=== PATIENT | female | born 1990 | race Caucasian/White ===

== ENCOUNTER 2018-11-13 16:25 | Observation (INO) | payer OTHER ==
[~2018-11-13] VITALS: Ht 160 cm; Wt 66.7 kg
[2018-11-13 17:06] VITALS: BP 120/66
[2018-11-13] MEDS ORDERED: BETAMETHASONE SOLUSPAN 6 MG/ML 5 ML VIAL IM ONE (18:15)
== END 2018-11-13 19:35 | disposition home or self-care (01) ==
LOC: 4S 16:25
PROVIDERS: ADMIT Obstetrics & Gynecology; ATTEND Obstetrics & Gynecology
DX: O46.93 Antepartum hemorrhage, unspecified, third trimester (principal); O26.893 Other specified pregnancy related conditions, third trimester; R10.9 Unspecified abdominal pain; O62.9 Abnormality of forces of labor, unspecified; Z3A.35 35 weeks gestation of pregnancy
CPT/HCPCS: 76805; 96372; G0378; J0702

== ENCOUNTER 2018-12-08 05:53 | Inpatient (IN) | payer OTHER ==
[~2018-12-08] VITALS: Ht 160 cm; Wt 69.9 kg
[2018-12-08 06:50] VITALS: BP 109/71
[2018-12-08] MEDS ORDERED: RINGERS SOLUTION,LACTATED 1,000 ML IV ONE (06:55)
[2018-12-08] MEDS ORDERED: CITRIC ACID/SODIUM CITRATE 30 ML SOLUTION UDCUP PO ONE (07:00)
[2018-12-08] MEDS ORDERED: METOCLOPRAMIDE HCL 5 MG/ML 2 ML VIAL IVP ONE (07:00)
[2018-12-08] MEDS ORDERED: MACR100 PO (07:13)
[2018-12-08] MEDS ORDERED: PREN1TAB80 PO (07:13)
[2018-12-08] MEDS ORDERED: CLINDAMYCIN 900 MG/D5% WATER 50 ML IV ONE (07:30)
[2018-12-08] MEDS ORDERED: FentaNYL CITRATE-PF 100 MCG/2 ML VIAL ONE (07:31)
[2018-12-08] MEDS ORDERED: ACETAMINOPHEN 1000 MG/ISO-OSM 100 ML IV ONE (07:32)
[2018-12-08] MEDS ORDERED: MORPHINE SULFATE/PF 0.5 MG/ML 10 ML AMP ONE (07:32)
[2018-12-08] MEDS ORDERED: BUPIVACAINE HCL/DEX-WATER/PF 0.75% 2 ML AMP ONE (07:32)
[2018-12-08 07:33] LABS: BASOPHILS % (AUTO) 0.5 % (0.0-2.0); EOSINOPHILS % (AUTO) 0.7 % (1.0-6.0); HEMATOCRIT 34.5 % (36-46); HEMOGLOBIN 12.1 g/dL (12.0-16.0); LYMPHOCYTES # (AUTO) 1.9 K/uL (1.0-4.8); LYMPHOCYTES % (AUTO) 25.3 % (22.0-44.0); MEAN CORPUSCULAR HEMOGLOBIN 32.1 pg (26.0-34.0); MEAN CORPUSCULAR HGB CONC 34.9 G/dL (31.0-37.0); MEAN CORPUSCULAR VOLUME 92 fL (80-100); MONOCYTES # (AUTO) 0.6 K/uL (0.1-1.0); MONOCYTES % (AUTO) 7.8 % (2.0-9.0); NEUTROPHILS # (AUTO) 4.9 K/uL (1.8-7.7); NEUTROPHILS % (AUTO) 65.7 % (40.0-70.0); PLATELET COUNT (AUTO)-OB 135 K/uL (150-450); RED BLOOD CELL COUNT(AUTO) 3.76 MIL/uL (4.00-5.20); RED CELL DISTRIBUTION WIDTH 13.7 % (11.5-14.5)
[2018-12-08] MEDS ORDERED: NALOXONE HCL 0.4 MG/ML VIAL IVP PRN (08:30)
[2018-12-08] MEDS ORDERED: NALBUPHINE HCL 10 MG/ML VIAL IVP PRN ×3 (08:30)
[2018-12-08] MEDS ORDERED: MORPHINE SULFATE 10 MG/ML SYRINGE IVP PRN (08:30)
[2018-12-08] MEDS ORDERED: ONDANSETRON HCL 4 MG/2 ML VIAL IVP PRN ×2 (08:30)
[2018-12-08] MEDS ORDERED: DiphenhydrAMINE HCL 50 MG/ML VIAL IVP PRN ×2 (08:30)
[2018-12-08] MEDS ORDERED: FentaNYL CITRATE-PF 100 MCG/2 ML VIAL IVP PRN (08:30)
[2018-12-08] MEDS ORDERED: DEXAMETHASONE SOD PHOS 4 MG/ML VIAL IVP PRN (08:30)
[2018-12-08] MEDS ORDERED: LANOLIN 7 GM OINTMENT TP PRN (08:45)
[2018-12-08] MEDS ORDERED: ACETAMINOPHEN/CODEINE 300-30 MG TABLET PO PRN ×2 (08:45)
[2018-12-08] MEDS ORDERED: 0.9% SODIUM CHLORIDE 10 ML VIAL IVP ONE (12:00)
[2018-12-08] MEDS ORDERED: EPHEDrine SULFATE 50 MG/ML VIAL IM ONE (12:00)
[2018-12-08] MEDS ORDERED: OXYTOCIN 10 UNITS/ML VIAL IM ONE (12:00)
[2018-12-08] MEDS: DEXTROSE 5%-0.45% SODIUM CHL 1,000 ML IV SCH ×3 (13:50→22:42)
[2018-12-08] MEDS: ACETAMINOPHEN 1000 MG/ISO-OSM 100 ML IV SCH (16:01)
[2018-12-08] MEDS ORDERED: OXYGEN THERAPY IH SCH ×3 (20:00)
[2018-12-09] MEDS: ACETAMINOPHEN 1000 MG/ISO-OSM 100 ML IV SCH (00:11)
[2018-12-09] MEDS: DEXTROSE 5%-0.45% SODIUM CHL 1,000 ML IV SCH (03:38)
[2018-12-09 05:33] LABS: BASOPHILS % (AUTO) 0.4 % (0.0-2.0); EOSINOPHILS % (AUTO) 0.5 % (1.0-6.0); HEMATOCRIT 38.6 % (36-46); HEMOGLOBIN 13.1 g/dL (12.0-16.0); LYMPHOCYTES # (AUTO) 1.8 K/uL (1.0-4.8); LYMPHOCYTES % (AUTO) 19.8 % (22.0-44.0); MEAN CORPUSCULAR HEMOGLOBIN 31.9 pg (26.0-34.0); MEAN CORPUSCULAR HGB CONC 33.9 G/dL (31.0-37.0); MEAN CORPUSCULAR VOLUME 94 fL (80-100); MONOCYTES # (AUTO) 0.5 K/uL (0.1-1.0); MONOCYTES % (AUTO) 5.5 % (2.0-9.0); NEUTROPHILS # (AUTO) 6.7 K/uL (1.8-7.7); NEUTROPHILS % (AUTO) 73.8 % (40.0-70.0); PLATELET COUNT (AUTO)-OB 159 K/uL (150-450); RED CELL DISTRIBUTION WIDTH 13.3 % (11.5-14.5)
[2018-12-09] MEDS: IBUPROFEN 800 MG TABLET PO SCH ×3 (08:21→21:03)
[2018-12-09] MEDS: MAGNESIUM HYDROXIDE SUSPENSION 30 ML UDCUP PO SCH ×3 (08:21→21:02)
[2018-12-10] MEDS: IBUPROFEN 800 MG TABLET PO SCH ×4 (03:09→21:03)
[2018-12-10] MEDS: MAGNESIUM HYDROXIDE SUSPENSION 30 ML UDCUP PO SCH (21:03)
[2018-12-11] MEDS: IBUPROFEN 800 MG TABLET PO SCH ×2 (03:51→09:16)
[2018-12-11] MEDS ORDERED: SENNA/DOCUSATE SODIUM 8.6-50 MG TABLET PO ONE (08:30)
[2018-12-11] MEDS ORDERED: IBUP-2071 PO (08:46)
[2018-12-11] MEDS: MAGNESIUM HYDROXIDE SUSPENSION 30 ML UDCUP PO SCH (09:17)
== END 2018-12-11 11:15 | disposition home or self-care (01) | DRG 788 ==
LOC: 4S 05:53 → PREOBSVTOIN 06:26
PROVIDERS: ADMIT Obstetrics & Gynecology; ATTEND Obstetrics & Gynecology
PROC: 10D00Z1 Extraction of Products of Conception, Low, Open Approach (ICD-10-PCS; principal; 2018-12-08)
DX: O34.13 Maternal care for benign tumor of corpus uteri, third trimester (principal); D25.9 Leiomyoma of uterus, unspecified; Z37.0 Single live birth; Z3A.39 39 weeks gestation of pregnancy; Z88.0 Allergy status to penicillin
CPT/HCPCS: 86850; 86900; 86901; 87081; J0131; J2274; J2300; J2405; J2590; J2765; J3010; J3490